=== PATIENT | female | born 1970 | race Caucasian/White ===

== ENCOUNTER 2021-01-14 17:36 | Observation (INO) ==
[2021-01-14] MEDS ORDERED: Naloxone 0.4 MG/ML INJ IVP PRN (18:15)
[2021-01-14] MEDS ORDERED: 0.9 % Sodium Chloride 1,000 ML IVC SCH (18:15)
[2021-01-14] MEDS ORDERED: *HR* Metoprolol 5 MG/5 ML VIAL IVP PRN (18:15)
[2021-01-14] MEDS ORDERED: Acetaminophen 325 MG TABLET PO PRN (18:17)
[2021-01-14] MEDS ORDERED: D5% in Water 1,000 ML IVC PRN (18:18)
[2021-01-14] MEDS ORDERED: Dextrose Gel 15 GM/37.5 ML TUBE PO PRN ×2 (18:18)
[2021-01-14] MEDS ORDERED: *HR* Dextrose 50 % in Water (Vial) 50 ML VIAL IVP PRN (18:18)
[2021-01-15] MEDS: *HR* HYDROcodone/Acet 5/325 mg TABLET PO PRN ×2 (01:56→12:41)
[2021-01-15 05:36] LABS: Basophils # 0.1 K/mcL (0.0-0.2); Basophils % 0.5 %; Eosinophils # 0.2 K/mcL (0.0-0.6); Eosinophils % 1.8 %; Hematocrit 38.4 % (35.3-44.9); Hemoglobin 12.9 g/dL (11.5-15.4); Immature Granulocytes % 0.2 % (0-4); Lymphocytes # 3.2 K/mcL (0.6-4.6); Lymphocytes % 31.6 %; Mean Corpuscular HGB Conc 33.6 g/dL (31.6-35.5); Mean Corpuscular Hemoglobin 30.7 pg (28.0-33.3); Mean Corpuscular Volume 91.4 fL (83.0-100.0); Mean Platelet Volume 9.1 fL (9.4-12.4); Monocytes # 0.9 K/mcL (0.0-1.3); Monocytes % 8.8 %; Neutrophils # 5.7 K/mcL (1.6-8.9); Platelet Count 338 K/mcL (140-400); Red Cell Distribution Width 12.7 % (11.5-14.5); Segmented Neutrophils % 57.1 %
[2021-01-15 05:55] LABS: Alanine Aminotransferase 13 Units/L (7-52); Albumin 3.6 g/dL (3.5-5.7); Albumin/Globulin Ratio 1.2 (1.1-2.2); Alkaline Phosphatase 72 Units/L (34-104); Aspartate Amino Transferase 15 Units/L (13-39); BUN/Creatinine Ratio 15 (6-26); Bilirubin,Indirect 0.4 mg/dL (0.0-1.0); Bilirubin,Total 0.4 mg/dL (0.3-1.0); Blood Urea Nitrogen 8 mg/dL (6-20); Calcium 8.6 mg/dL (8.6-10.3); Carbon Dioxide 23 mEq/L (23-29); Chloride 102 mEq/L (98-107); Globulin 3.1 g/dL (2.4-3.5); Glucose 141 mg/dL (70-105); Osmolality,Calculated 283 (280-300); Potassium 3.5 mEq/L (3.5-5.1); Sodium 136 mEq/L (136-145); Total Protein 6.7 g/dL (6.4-8.9); eGFR For African Americans > 60 (> 60); eGFR For Non-African Americans > 60 (> 60)
[2021-01-15] MEDS: Insulin LISPRO 300 UNITS/3 ML VIAL SUBQ SCH ×3 (10:27→16:55)
[2021-01-15] MEDS ORDERED: *HR* Midazolam HCl 2 MG/2 ML VIAL ONE (16:23)
[2021-01-15] MEDS ORDERED: *HR* FentaNYL (PF) 100 MCG/2 ML VIAL ONE (16:23)
[2021-01-15] MEDS ORDERED: *HR* Propofol 200 MG/20 ML VIAL IVP ONE (16:23)
[2021-01-15] MEDS ORDERED: Lidocaine -MPF 2% 2 ML VIAL ONE (16:24)
[2021-01-15] MEDS ORDERED: *HR* Rocuronium Bromide 50 MG/5 ML VIAL ONE ×2 (16:24)
[2021-01-15] MEDS ORDERED: Lidocaine HCL 4 ML Topical Solution (Laryng-O-Jet Kit Sterile Pak) TP ONE (16:27)
[2021-01-15] MEDS ORDERED: *HR* OxyCODONE Immed Rel 5 MG TABLET PO PRN (17:11)
[2021-01-15] MEDS ORDERED: Ondansetron 4 MG/2 ML VIAL IVP PRN (17:11)
[2021-01-15] MEDS ORDERED: *HR* HYDROmorphone PF 0.5 MG/0.5 ML SYRINGE IVP PRN (17:11)
[2021-01-15] MEDS ORDERED: CefOXitin 2,000 MG VIAL ONE (17:29)
[2021-01-15] MEDS ORDERED: Ketorolac 30 MG/ML VIAL ONE (17:56)
[2021-01-15] MEDS ORDERED: Sugammadex Sodium 200 MG/2 ML VIAL IV ONE (17:58)
[2021-01-15] MEDS ORDERED: *HR* HYDROMORPHONE 2 MG/ML VIAL ONE (18:03)
[2021-01-15 22:12] VITALS: BP 132/84; PULSE 83; TEMP 97.8; O2SAT 99
== END 2021-01-15 23:13 | disposition home or self-care (01) ==
LOC: 3ANU
PROVIDERS: ADMIT Surgery; ATTEND Surgery